=== PATIENT | male | born 1975 | race Caucasian/White ===

== ENCOUNTER 2020-05-08 12:08 | Inpatient (IN) | payer OTHER ==
--- NOTE | 2020-05-08 12:25 | BHS.RME ---
Substance Use & Tx History - Substance Use History Heroin Substance amount: 1 bag Frequency of use: Daily Substance route: Inhalation (ex: sniffing or snorting) Date of Last Use: 05/07/20 (started age 37) Xanax Substance amount: 2 mg 5 tabs Frequency of use: Daily Substance route: Oral Date of Last Use: 05/07/20 (started age 42) Nicotine Substance amount: 1 pack Frequency of use: Daily Substance route: Smoking Date of Last Use: 05/08/20 (started age 14) Physical/Psych/Mental Status - Behavior General Behavior: Increased activity (restlessness, agitation) Eye Contact: Normal - Cooperativeness Cooperativeness: Cooperative - Thinking Thought Processes: Tight, Logical, Goal Directed - Physical Health Problems Is patient presently having any pain?: No Does patient presently have any injuries (include location): No Does patient currently have a fever: No Is patient : No CIWA Nausea/Vomitin-Mild Nausea/No Vomiting Muscle Tremors: 4-Moderate,w/Arms Extend Anxiety: 4-Mod. Anxious/Guarded Agitation: 3 Paroxysmal Sweats: 3 Orientation: 0-Oriented Tacttile Disturbances: 0-None Auditory Disturbances: 0-None Visual Disturbances: 0-None Headache: 0-None Present (may be mitigated due to the ongoing sedative use.) CIWA-Ar Total Score: 15
--- NOTE | 2020-05-08 13:55 | HP ---
CIWA Score Nausea/Vomitin-Mild Nausea/No Vomiting Muscle Tremors: 4-Moderate,w/Arms Extend Anxiety: 4-Mod. Anxious/Guarded Agitation: 3 Paroxysmal Sweats: 3 Orientation: 0-Oriented Tacttile Disturbances: 0-None Auditory Disturbances: 0-None Visual Disturbances: 0-None Headache: 0-None Present (may be mitigated due to the ongoing sedative use.) CIWA-Ar Total Score: 15 - Admission Criteria OASAS Guidelines: Admission for Medically Managed Detox: Requires at least one of the followin. CIWA greater than 12 2. Seizures within the past 24 hours 3. Delirium tremens within the past 24 hours 4. Hallucinations within the past 24 hours 5. Acute intervention needed for co occurring medical disorder 6. Acute intervention needed for co occurring psychiatric disorder 7. Severe withdrawal that cannot be handled at a lower level of care (continued vomiting, continued diarrhea, abnormal vital signs) requiring intravenous medication and/or fluids 8. Admitting History and Physical - Admission Chief Complaint: Mr. Mccrary is a 44 yo gentleman who presents to [facility] requesting detox from heroin and benzodiazepine use. History of Present Illness: Mr. Mccrary is a 44 yo gentleman who presents to [facility] requesting detox from heroin and benzodiazepine use. He went to rehab in July after using 2 bundles of heroin. He is now on m ethadone 120 mg. PMH: obesity PSH: none Psych: anxiety, depression on meds, insomnia SoC: lives iwth parents Legal:none Substance Use History Heroin Substance amount: 1 bag Frequency of use: Daily Substance route: Inhalation (ex: sniffing or snorting) Date of Last Use: 05/07/20 (started age 37) NO OD or Narcan available Xanax Substance amount: 2 mg 5 tabs Frequency of use: Daily Substance route: Oral Date of Last Use: 05/07/20 (started age 42) He has never tried stopping benzos, if he stops he gets tremulous Nicotine Substance amount: 1 pack Frequency of use: Daily Substance route: Smoking Date of Last Use: 05/08/20 (started age 14) History Source: Patient Limitations to Obtaining History: No Limitations Admission ROS BHS - HPI Exam Limitations: No Limitations - Ebola screening Have you traveled outside of the country in the last 21 days: No Have you been sick,other than usual withdrawal symptoms: No Do you have a fever: No - Review of Systems Constitutional: Changes in sleep (trouble falling and staying asleep, has had meds) EENT: reports: Blurred Vision (glasses used for distance, has them with him) Respiratory: reports: No Symptoms reported Cardiac: reports: No Symptoms Reported GI: reports: Constipated, Nausea : reports: No Symptoms Reported Musculoskeletal: reports: No Symptoms Reported Integumentary: reports: Other (scratched mosquito bites on both anterior legs, fell when he jumped over a fence today: scraped elbows and knees while working with his dad) Neuro: reports: No Symptoms reported Endocrine: reports: No Symptoms Reported Hematology: reports: No Symptoms Reported Psychiatric: reports: Anxious Patient History - Smoking Cessation Smoking history: Current every day smoker Have you smoked in the past 12 months: Yes Aproximately how many cigarettes per day: 20 Hx Chewing Tobacco Use: No Initiated information on smoking cessation: Yes 'Breaking Loose' booklet given: 05/08/20 Admission Physical Exam S - Physical General Appearance: Yes: No Apparent Distress, Nourished, Anxious HEENTM: Yes: EOMI, Hearing grossly Normal, Normocephalic, Normal Voice Respiratory: Yes: Lungs Clear, No Respiratory Distress, No Accessory Muscle Use Neck: Yes: Within Normal Limits, Supple Breast: Yes: Breast Exam Deferred Cardiology: Yes: Regular Rhythm, Regular Rate Abdominal: Yes: Normal Bowel Sounds, Non Tender, Soft, Protuberent Genitourinary: Yes: Other (deferred) Back: Yes: Normal Inspection Musculoskeletal: Yes: Gait Steady Extremities: Yes: Normal Inspection, Non-Tender Neurological: Yes: Alert, Normal Response Integumentary: Yes: Other (scratch over left anterior leg ~3" with scab, scratch left knee and right elbow with small band aids covering, small amount of blood on band aids.) - Diagnostic (1) Moderate opioid dependence on maintenance therapy Current Visit: Yes Status: Acute Comment: 1. verify methadone, pt states last dose yesterday, will wait for verification prior to entering order (2) Sedative/hypnotic withdrawal without complication Current Visit: Yes Status: Acute Comment: 1. CIWA 15 2. will start pt on Valium protocol for detox 3. strongly recommend pt go to rehab post detox (3) Nicotine dependence Current Visit: Yes Status: Acute Qualifiers: Nicotine product type: cigarettes Substance use status: uncomplicated Qualified Code(s): F17.210 - Nicotine dependence, cigarettes, uncomplicated (4) Anxiety Current Visit: Yes Status: Acute Comment: 1. psychiatry consultation, medication management (5) Insomnia Current Visit: Yes Status: Acute Comment: 1. will start melatonin 2. pt states he has meds with him for sleep, will check prior to renewal Cleared for Admission S - Detox or Rehab [facility] Level of Care: Medically Managed Detox Regimen/Protocol: Valium Breathalyzer - Breathalyzer Breathalyzer: 0 Urine Drug Screen - Test Device Lot number: [id number] Expiration date: 11/29/21 - Control Is test valid?: Yes - Results Urine drug screen results: FEN-Fentanyl, MOP-Opiates, MTD-Methadone, BZO- Benzodiazepines Inpatient Rehab Admission - Rehab Decision to Admit Inpatient rehab admission?: No
[2020-05-08] MEDS ORDERED: ACETAMINOPHEN 325 MG TABLET (FP) PO PRN ×2 (14:09)
[2020-05-08] MEDS ORDERED: MAG HYDROX/AL HYDROX/SIMETH 30 ML UNIT-DOSE CUP PO PRN (14:09)
[2020-05-08] MEDS ORDERED: MAGNESIUM CITRATE 300 ML BOTTLE PO PRN (14:09)
[2020-05-08] MEDS ORDERED: BISMUTH SUBSALICYLATE 524 MG/30 ML UD PO PRN (14:09)
[2020-05-08] MEDS ORDERED: ONDANSETRON *ODT* 4 MG TABLET SL PRN (14:09)
[2020-05-08] MEDS ORDERED: NICOTINE POLACRILEX 2 MG GUM BUC PRN (14:09)
[2020-05-08] MEDS ORDERED: MAGNESIUM HYDROX 2400MG/30ML ORAL SUSPENSION 30 ML CUP PO PRN (14:09)
[2020-05-08] MEDS ORDERED: METHOCARBAMOL 500 MG TABLET PO PRN (14:09)
[2020-05-08] MEDS ORDERED: MENTHOL/PHENOL 1 EACH UD MM PRN (14:09)
[2020-05-08] MEDS ORDERED: IBUPROFEN 400 MG TABLET (FP) PO PRN (14:09)
[2020-05-08 14:53] VITALS: BMI 33.8
[2020-05-08] MEDS ORDERED: METHADONE HCL 10 MG TABLET (FOR DETOX USE ONLY) PO ONE (15:28)
[2020-05-08 17:20] LABS: HEMATOCRIT 43.5 % (35.4-49); HEMOGLOBIN 14.4 GM/dL (11.7-16.9); MCH 28.9 pg (25.7-33.7); MCHC 33.1 g/dl (32.0-35.9); MEAN CELL VOLUME 87.2 fl (80-96); MEAN PLT VOLUME 9.1 fl (7.5-11.1); PLATELET COUNT 147 K/MM3 (134-434); RBC 4.99 M/mm3 (4.00-5.60); RDW 14.6 % (11.9-15.9); WHITE BLOOD COUNT 7.9 K/mm3 (4.0-10.0)
[2020-05-08 17:22] LABS: ALBUMIN 3.8 g/dl (3.4-5.0); BILIRUBIN,TOTAL 0.7 mg/dL (0.2-1); BLOOD UREA NITROGEN 10.7 mg/dL (7-18); CALCIUM 8.6 mg/dL (8.5-10.1); POTASSIUM 3.8 mmol/L (3.5-5.1); TOT PROT 7.5 g/dl (6.4-8.2)
[2020-05-08] MEDS: NICOTINE 21 MG/24 HOURS TOPICAL PATCH TD SCH (18:40)
[2020-05-08] MEDS: diazePAM 5 MG TABLET PO SCH ×2 (18:42→22:43)
[2020-05-08] MEDS: hydrOXYzine PAMOATE 25 MG CAPSULE (FP) PO SCH ×2 (18:43→22:43)
[2020-05-08] MEDS: MELATONIN 5 MG TABLETS PO SCH (22:43)
[2020-05-08] MEDS: THIAMINE HCL 100 MG TABLET (FP) PO SCH (22:43)
[2020-05-09] MEDS: diazePAM 5 MG TABLET PO SCH ×4 (05:48→22:13)
[2020-05-09] MEDS: hydrOXYzine PAMOATE 25 MG CAPSULE (FP) PO SCH ×5 (05:48→22:13)
--- NOTE | 2020-05-09 09:03 | EKG ---
Test Reason : Blood Pressure : / mmHG Vent. Rate : 086 BPM Atrial Rate : 086 BPM P-R Int : 122 ms QRS Dur : 084 ms QT Int : 378 ms P-R-T Axes : 068 056 068 degrees QTc Int : 452 ms NORMAL SINUS RHYTHM WITH SINUS ARRHYTHMIA NORMAL ECG NO PREVIOUS ECGS AVAILABLE Confirmed by MD RAUL, GADIEL ([id number]) on 05/09/2020 9:02:50 AM Referred By: Confirmed By:GADIEL CARTER MD
--- NOTE | 2020-05-09 09:31 | PN ---
S CIWA - CIWA Score Nausea/Vomitin-No Nausea/No Vomiting Muscle Tremors: 3 Anxiety: 3 Agitation: 1-Slight > Activity Paroxysmal Sweats: No Perspiration Orientation: 0-Oriented Tacttile Disturbances: 0-None Auditory Disturbances: 0-None Visual Disturbances: 2-Mild Sensitivity Headache: 2-Mild CIWA-Ar Total Score: 11 S Progress Note (SOAP) Subjective: 44 years old male was admitted on 05/08/20 for benzo withdrawal sx management treating with valium detox regiment mr post is in the methadone program takes 80mg po methadone daily last dose on 05/08/20 been verified Objective: 05/09/20 09:34 Vital Signs - 24 hr 05/08/20 05/08/20 05/08/20 14:43 14:45 15:44 Temperature 97.2 F L 97.1 F L Pulse Rate 107 H 89 Respiratory 20 18 Rate Blood Pressure 147/99 119/87 O2 Sat by Pulse 97 95 Oximetry (%) 05/08/20 05/08/20 05/09/20 16:48 21:03 06:31 Temperature 97.5 F L 97.3 F L 97.9 F Pulse Rate 98 H 90 75 Respiratory 18 18 18 Rate Blood Pressure 129/86 131/87 127/86 O2 Sat by Pulse 95 95 97 Oximetry (%) 05/09/20 08:48 Temperature 97.1 F L Pulse Rate 81 Respiratory 20 Rate Blood Pressure 120/85 O2 Sat by Pulse Oximetry (%) Laboratory Tests 05/08/20 05/08/20 05/08/20 14:15 14:15 14:15 WBC 7.9 RBC 4.99 Hgb 14.4 Hct 43.5 MCV 87.2 MCH 28.9 MCHC 33.1 RDW 14.6 Plt Count 147 MPV 9.1 Sodium 142 Potassium 3.8 Chloride 103 Carbon Dioxide 34 H Anion Gap 5 L BUN 10.7 Creatinine 1.0 Est GFR (CKD-EPI)AfAm 104.88 Est GFR (CKD-EPI)NonAf 90.49 Random Glucose 123 H Calcium 8.6 Total Bilirubin 0.7 AST 18 ALT 20 Alkaline Phosphatase 71 Total Protein 7.5 Albumin 3.8 Syphilis Serology Non-reactive HIV Ag/Ab Combo Qual 05/08/20 14:15 WBC RBC Hgb Hct MCV MCH MCHC RDW Plt Count MPV Sodium Potassium Chloride Carbon Dioxide Anion Gap BUN Creatinine Est GFR (CKD-EPI)AfAm Est GFR (CKD-EPI)NonAf Random Glucose Calcium Total Bilirubin AST ALT Alkaline Phosphatase Total Protein Albumin Syphilis Serology HIV Ag/Ab Combo Qual Negative 05/09/20 09:38 covid pending mr post is alert oriented x 3 ambulating with steady gaits from bed to bathroom speech clearly coherently vital signs stable ate breakfast in room no trouble chewing food nor swallowing food tolerating food well Assessment: 05/09/20 09:40 benzo withdrawal Plan: valium regiment methadone 80mg po daily begin 05/10/20
[2020-05-09] MEDS ORDERED: METHADONE HCL 10 MG TABLET PO ONE (09:36)
[2020-05-09] MEDS ORDERED: METHADONE HCL 40 MG DISPERSABLE TABLET PO ONE (10:00)
[2020-05-09] MEDS: PRENATAL VITAMINS W/ FOLIC ACID TABLET (FP) PO SCH (10:58)
[2020-05-09] MEDS: NICOTINE 21 MG/24 HOURS TOPICAL PATCH TD SCH (10:59)
--- NOTE | 2020-05-09 12:32 | CONSULT ---
[facility] Psychiatric Consult - Data Date of interview: 05/09/20 Admission source: [facility] Identifying data: Second visit to [facility] and first admission to the detoxification program at [address] [place] [address] for this 44 y/o male self-referred for treatment. JUSTINE issues : benzodiazepine (xanax), opioid, nicotine. 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 Substance Abuse History: Discussed with the patient. JUSTINE profile as follows : Heroin. Substance amount: 1 bag. Frequency of use: Daily. Substance route: Inhalation (ex: sniffing or snorting). Date of Last Use: 05/07/20 (started age 37). NO OD or Narcan available. Xanax. Substance amount: 2 mg 5 tabs. Frequency of use: Daily. Substance route: Oral. Date of Last Use: 05/07/20 (started age 42). He has never tried stopping benzos, if he stops he gets tremulous. Nicotine. Substance amount: 1 pack. Frequency of use: Daily. Substance route: Smoking. Date of Last Use: 05/08/20 (started age 14). History Source: Patient. Limitations to Obtaining History: No Limitations. First-time detoxification. Patient has also reported use of cocaine and sporadic exposure to cannabis. Medical History: Medical profile is remarkable for obesity. Patient endorses good general health. Psychiatric History: Patient denies history of psychiatric hospitalizations. He reports current psychiatric OPD treatment at a [facility] clinic in the [place] (started three months ago). Mr Hermann bhagat indicates that he is prescribed " a medication for anxiety " but he does not recall the name of the drug. Patient denies history of suicide attempts. He is currently on methadone maintenance (120 mg/day). Physical/Sexual Abuse/Trauma History: Patient denies history of abuse. Additional Comment: Urine drug screen results: FEN-Fentanyl, MOP-Opiates, MTD- Methadone, BZO-Benzodiazepines. Noted. Mental Status Exam - Mental Status Exam Alert and Oriented to: Time, Place, Person Cognitive Function: Good Patient Appearance: Well Groomed Mood: Hopeful Affect: Appropriate, Normal Range Patient Behavior: Fatigued, Appropriate, Cooperative (friendly) Speech Pattern: Clear, Appropriate Voice Loudness: Normal Thought Process: Intact, Goal Oriented Thought Disorder: Not Present Hallucinations: Denies Suicidal Ideation: Denies Homicidal Ideation: Denies Insight/Judgement: Fair Sleep: Well Appetite: Good Gait/Station: Normal Psychiatric Findings - Problem List (Hermann 1, 2,3) (1) Sedative/hypnotic withdrawal without complication Current Visit: Yes Status: Acute Comment: 1. CIWA 15 2. will start pt on Valium protocol for detox 3. strongly recommend pt go to rehab post detox (2) Opioid dependence on agonist therapy Current Visit: Yes Status: Chronic (3) Benzodiazepine dependence Current Visit: Yes Status: Chronic (4) Substance induced mood disorder Current Visit: Yes Status: Chronic (5) Insomnia Current Visit: Yes Status: Chronic Comment: 1. will start melatonin 2. pt states he has meds with him for sleep, will check prior to renewal - Initial Treatment Plan Initial Treatment Plan: Psychoeducation. Sleep hygiene. Detoxification in progress. Weaving Teacher called [id number] for verification of medications at [phone] (not informative : call switched to mailbox). Support. Observation.
[2020-05-09] MEDS: diazePAM 5 MG TABLET PO PRN (14:20)
[2020-05-09] MEDS: THIAMINE HCL 100 MG TABLET (FP) PO SCH (22:13)
[2020-05-09] MEDS: MELATONIN 5 MG TABLETS PO SCH (22:13)
[2020-05-10] MEDS: METHADONE HCL 40 MG DISPERSABLE TABLET PO SCH (06:30)
[2020-05-10] MEDS: hydrOXYzine PAMOATE 25 MG CAPSULE (FP) PO SCH ×5 (06:30→22:04)
[2020-05-10] MEDS: diazePAM 5 MG TABLET PO SCH ×3 (06:30→22:04)
[2020-05-10] MEDS: PRENATAL VITAMINS W/ FOLIC ACID TABLET (FP) PO SCH (09:49)
[2020-05-10] MEDS: diazePAM 5 MG TABLET PO PRN (09:49)
[2020-05-10] MEDS: NICOTINE 21 MG/24 HOURS TOPICAL PATCH TD SCH (09:49)
--- NOTE | 2020-05-10 11:56 | PN ---
S CIWA - CIWA Score Nausea/Vomitin-Mild Nausea/No Vomiting Muscle Tremors: 2 Anxiety: 2 Agitation: 2 Paroxysmal Sweats: No Perspiration Orientation: 0-Oriented Tacttile Disturbances: 0-None Auditory Disturbances: 0-None Visual Disturbances: 0-None Headache: 1-Very Mild CIWA-Ar Total Score: 8 BHS Progress Note (SOAP) Subjective: alert,irritable,anxious,interrupted sleep,aching pain,nausea Objective: 05/10/20 16:18 Vital Signs Temperature 97.2 F L 05/10/20 12:42 Pulse Rate 84 05/10/20 12:42 Respiratory Rate 18 05/10/20 12:42 Blood Pressure 118/80 05/10/20 12:42 O2 Sat by Pulse Oximetry (%) 95 05/10/20 12:42 Assessment: 05/10/20 16:19 withdrawal symptom Plan: continue detox valium regimen,methadone maintenance 80 mgs/day methadone regimen
[2020-05-10] MEDS: MELATONIN 5 MG TABLETS PO SCH (22:05)
[2020-05-10] MEDS: THIAMINE HCL 100 MG TABLET (FP) PO SCH (22:05)
[2020-05-11] MEDS: METHADONE HCL 40 MG DISPERSABLE TABLET PO SCH (06:12)
[2020-05-11] MEDS: diazePAM 5 MG TABLET PO SCH ×2 (06:13→17:42)
[2020-05-11] MEDS: hydrOXYzine PAMOATE 25 MG CAPSULE (FP) PO SCH ×5 (06:13→22:04)
--- NOTE | 2020-05-11 09:41 | PN ---
S CIWA - CIWA Score Nausea/Vomitin-No Nausea/No Vomiting Muscle Tremors: None Anxiety: 1-Mildly Anxious Agitation: 0-Normal Activity Paroxysmal Sweats: No Perspiration Orientation: 2-Disoriented Date<2 days Tacttile Disturbances: 0-None Auditory Disturbances: 0-None Visual Disturbances: 0-None Headache: 0-None Present CIWA-Ar Total Score: 3 BHS Progress Note (SOAP) Subjective: Pt with mild anxiety, thinks today is the Objective: 05/11/20 10:03 PE Gnl: WDWN, up out of bed MS: nl mentation Motor: moves limbs well Coord: nl Gait: steady Laboratory Tests 05/08/20 05/08/20 05/08/20 14:15 14:15 14:15 WBC 7.9 RBC 4.99 Hgb 14.4 Hct 43.5 MCV 87.2 MCH 28.9 MCHC 33.1 RDW 14.6 Plt Count 147 MPV 9.1 Sodium 142 Potassium 3.8 Chloride 103 Carbon Dioxide 34 H Anion Gap 5 L BUN 10.7 Creatinine 1.0 Est GFR (CKD-EPI)AfAm 104.88 Est GFR (CKD-EPI)NonAf 90.49 Random Glucose 123 H Calcium 8.6 Total Bilirubin 0.7 AST 18 ALT 20 Alkaline Phosphatase 71 Total Protein 7.5 Albumin 3.8 Syphilis Serology Non-reactive COVID-19 (RODERICK) HIV Ag/Ab Combo Qual 05/08/20 05/08/20 14:15 14:15 WBC RBC Hgb Hct MCV MCH MCHC RDW Plt Count MPV Sodium Potassium Chloride Carbon Dioxide Anion Gap BUN Creatinine Est GFR (CKD-EPI)AfAm Est GFR (CKD-EPI)NonAf Random Glucose Calcium Total Bilirubin AST ALT Alkaline Phosphatase Total Protein Albumin Syphilis Serology COVID-19 (RODERICK) Not detected HIV Ag/Ab Combo Qual Negative Home Medication List Medication Instructions Recorded Confirmed Type Clonidine HCl [Catapres] 0.2 mg PO HS 05/08/20 05/08/20 History Fluvoxamine Maleate 100 mg PO HS 05/08/20 05/08/20 History cloNIDine HCL [Catapres -] 0.1 mg PO DAILY 05/08/20 05/08/20 History levETIRAcetam [Keppra -] 1,000 mg PO BID 05/08/20 05/08/20 History Active Medications Generic Name Dose Route Start Last Admin Trade Name Freq PRN Reason Stop Dose Admin Acetaminophen 650 mg 05/08/20 14:09 Tylenol - PO Q6H PRN PAIN LEVEL 4 - 6 Acetaminophen 650 mg 05/08/20 14:09 Tylenol - PO Q6H PRN FEVER Al Hydroxide/Mg Hydroxide 30 ml 05/08/20 14:09 Mylanta Oral Suspension - PO Q6H PRN DYSPEPSIA Bismuth Subsalicylate 524 mg 05/08/20 14:09 Pepto-Bismol - PO Q1H PRN DIARRHEA Diazepam 5 mg 05/11/20 06:00 05/11/20 06:13 Valium - PO 05/11/20 18:01 5 mg Q12H EMMIE Administration Diazepam 10 mg 05/08/20 14:09 05/10/20 09:49 Valium - PO 05/11/20 14:08 10 mg Q4H PRN Administration WITHDRAWAL(CONT SUBST) Diazepam 5 mg 05/12/20 06:00 Valium - PO 05/12/20 06:01 ONCE ONE Eucalyptus/Menthol/Phenol/Sorbitol 1 each 05/08/20 14:09 Cepastat Lozenge - MM 05/14/20 14:10 Q4H PRN SORE THROAT Hydroxyzine Pamoate 25 mg 05/08/20 18:00 05/11/20 06:13 Vistaril - PO 05/14/20 14:10 25 mg Q4HWA EMMIE Administration Ibuprofen 400 mg 05/08/20 14:09 Motrin - PO Q6H PRN PAIN LEVEL 1 - 3 Magnesium Citrate 300 ml 05/08/20 14:09 Citroma - PO Q48H PRN CONSTIPATION Magnesium Hydroxide 30 ml 05/08/20 14:09 05/10/20 22:05 Milk Of Magnesia - PO 30 ml PRN PRN Administration CONSTIPATION Melatonin 5 mg 05/08/20 22:00 05/10/20 22:05 Melatonin PO 5 mg HS EMMIE Administration Methadone HCl 80 mg 05/10/20 06:00 05/11/20 06:12 Dolophine - PO 05/16/20 05:59 80 mg DAILY@0600 EMMIE Administration Methocarbamol 500 mg 05/08/20 14:09 05/09/20 10:58 Robaxin - PO 05/14/20 14:10 500 mg Q6H PRN Administration MUSCLE SPASMS Nicotine 21 mg 05/08/20 14:15 05/10/20 09:49 Nicoderm Patch - TD 21 mg DAILY EMMIE Administration Nicotine Polacrilex 2 mg 05/08/20 14:09 Nicorette Gum - BUC Q2H PRN NICOTINE REPLACEMENT RX Ondansetron HCl 4 mg 05/08/20 14:09 Zofran Odt - SL Q8H PRN Nausea/Vomiting Multivit/Folic Acid/Iron 1 tab 05/09/20 10:00 05/10/20 09:49 Vitamins (Sjr) - PO 1 tab DAILY EMMIE Administration Thiamine HCl 100 mg 05/08/20 22:00 05/10/20 22:05 Vitamin B1 - PO 100 mg HS EMMIE Administration Vital Signs Temperature 97.7 F 05/11/20 08:44 Pulse Rate 108 H 05/11/20 08:44 Respiratory Rate 18 05/11/20 08:44 Blood Pressure 148/92 05/11/20 08:44 O2 Sat by Pulse Oximetry (%) 98 05/11/20 07:56 Assessment: 05/11/20 09:40 Mr. Mccrary is a 44 yo gentleman who presents to [facility] requesting detox from heroin and benzodiazepine use. He went to rehab in July after using 2 bundles of heroin. He is now on methadone 120 mg. PMH: obesity PSH: none Psych: anxiety, depression on meds, insomnia SoC: lives iwth parents Legal:none Imp 1. Methadone maintenence: 80 mg daily 2. Sedative use disorder 3. Nicotine dependence Plan: 1. continue Methadone 80 mg dialy 2. Valium protocol, projected completion tomorrow, plans outpatient program: [facility]
[2020-05-11] MEDS: NICOTINE 21 MG/24 HOURS TOPICAL PATCH TD SCH (10:10)
[2020-05-11] MEDS: PRENATAL VITAMINS W/ FOLIC ACID TABLET (FP) PO SCH (10:10)
[2020-05-11] MEDS: diazePAM 5 MG TABLET PO PRN (10:11)
[2020-05-11] MEDS: MELATONIN 5 MG TABLETS PO SCH (22:04)
[2020-05-11] MEDS: THIAMINE HCL 100 MG TABLET (FP) PO SCH (22:04)
[2020-05-12] MEDS: METHADONE HCL 40 MG DISPERSABLE TABLET PO SCH (05:28)
[2020-05-12] MEDS: hydrOXYzine PAMOATE 25 MG CAPSULE (FP) PO SCH (05:28)
[2020-05-12] MEDS ORDERED: diazePAM 5 MG TABLET PO ONE (06:00)
[2020-05-12 06:30] VITALS: BP 123/76; PULSE 78; TEMP 97.7
--- NOTE | 2020-05-12 10:38 | DS ---
[facility] Detox Discharge Summary Admission Date: 05/08/20 Discharge Date: 05/12/20 - History Present History: Opioid Dependence, Sedative Dependence Additional Comments: Pt is medically cleared and discharged today. Pt completed the detox protocol. Pt is instructed to follow-up with an outpatient CD program and also to follow- up with his pmd which he verbalized understanding. Pt is AOX3, in no acute respiratory distress, Full ROM, and ambulatory. Pertinent Past History: h/o heroin and benzo use disorder. - Physical Exam Results Vital Signs: Vital Signs Temperature 97.7 F 05/12/20 06:30 Pulse Rate 78 05/12/20 06:30 Respiratory Rate 18 05/12/20 06:30 Blood Pressure 123/76 05/12/20 06:30 O2 Sat by Pulse Oximetry (%) 96 05/12/20 06:30 Vital Signs 05/12/20 06:30 Temperature 97.7 F Pulse Rate 78 Respiratory 18 Rate Blood Pressure 123/76 O2 Sat by Pulse 96 Oximetry (%) Laboratory Last Values WBC 7.9 K/mm3 (4.0-10.0) 05/08/20 14:15 RBC 4.99 M/mm3 (4.00-5.60) 05/08/20 14:15 Hgb 14.4 GM/dL (11.7-16.9) 05/08/20 14:15 Hct 43.5 % (35.4-49) 05/08/20 14:15 MCV 87.2 fl (80-96) 05/08/20 14:15 MCH 28.9 pg (25.7-33.7) 05/08/20 14:15 MCHC 33.1 g/dl (32.0-35.9) 05/08/20 14:15 RDW 14.6 % (11.9-15.9) 05/08/20 14:15 Plt Count 147 K/MM3 (134-434) 05/08/20 14:15 MPV 9.1 fl (7.5-11.1) 05/08/20 14:15 Sodium 142 mmol/L (136-145) 05/08/20 14:15 Potassium 3.8 mmol/L (3.5-5.1) 05/08/20 14:15 Chloride 103 mmol/L (98-107) 05/08/20 14:15 Carbon Dioxide 34 mmol/L (21-32) H 05/08/20 14:15 Anion Gap 5 MMOL/L (8-16) L 05/08/20 14:15 BUN 10.7 mg/dL (7-18) 05/08/20 14:15 Creatinine 1.0 mg/dL (0.55-1.3) 05/08/20 14:15 Est GFR (CKD-EPI)AfAm 104.88 05/08/20 14:15 Est GFR (CKD-EPI)NonAf 90.49 05/08/20 14:15 Random Glucose 123 mg/dL (74-106) H 05/08/20 14:15 Calcium 8.6 mg/dL (8.5-10.1) 05/08/20 14:15 Total Bilirubin 0.7 mg/dL (0.2-1) 05/08/20 14:15 AST 18 U/L (15-37) 05/08/20 14:15 ALT 20 U/L (13-61) 05/08/20 14:15 Alkaline Phosphatase 71 U/L (45-117) 05/08/20 14:15 Total Protein 7.5 g/dl (6.4-8.2) 05/08/20 14:15 Albumin 3.8 g/dl (3.4-5.0) 05/08/20 14:15 Syphilis Serology Non-reactive (NONREACTIVE) 05/08/20 14:15 COVID-19 (RODERICK) Not detected (Not Detected) 05/08/20 14:15 HIV Ag/Ab Combo Qual Negative (NEGATIVE) 05/08/20 14:15 Labs noted. Pertinent Admission Physical Exam Findings: withdrawal symptoms. - Treatment Hospital Course: Detox Protocol Followed, Detoxed Safely, Responded well, Discharged Condition Good - Medication Discharge Medications: Ambulatory Orders Clonidine HCl [Catapres] 0.2 mg PO HS 05/08/20 Fluvoxamine Maleate 100 mg PO HS 05/08/20 cloNIDine HCL [Catapres -] 0.1 mg PO DAILY 05/08/20 levETIRAcetam [Keppra -] 1,000 mg PO BID 05/08/20 - Diagnosis (1) Nicotine dependence Status: Chronic Qualifiers: Nicotine product type: cigarettes Substance use status: uncomplicated Qualified Code(s): F17.210 - Nicotine dependence, cigarettes, uncomplicated (2) Benzodiazepine dependence Status: Chronic (3) Opioid dependence on agonist therapy Status: Chronic (4) Sedative/hypnotic withdrawal without complication Status: Acute - AMA Did Patient Leave Against Medical Advice: No
== END 2020-05-12 08:33 | disposition home or self-care (01) | DRG 773 ==
LOC: YASAS 12:08 → Y3N 14:46
PROVIDERS: ADMIT Allergy & Immunology; ATTEND Allergy & Immunology
PROC: HZ2ZZZZ Detoxification Services for Substance Abuse Treatment (ICD-10-PCS; principal; 2020-05-08)
DX: F13.230 Sedative, hypnotic or anxiolytic dependence with withdrawal, uncomplicated (principal); F11.20 Opioid dependence, uncomplicated; F14.10 Cocaine abuse, uncomplicated; F17.210 Nicotine dependence, cigarettes, uncomplicated; F19.24 Other psychoactive substance dependence with psychoactive substance-induced mood disorder; F41.9 Anxiety disorder, unspecified; F32.9 Major depressive disorder, single episode, unspecified; G47.00 Insomnia, unspecified; E66.09 Other obesity due to excess calories; Z68.33 Body mass index [BMI] 33.0-33.9, adult
CPT/HCPCS: 36415; 80053; 85027; 86780; 87389; 93005; 93010; U0003

== ENCOUNTER 2021-12-11 11:05 | Inpatient (IN) | payer OTHER ==
[2021-12-11] MEDS ORDERED: BENZOCAINE/MENTHOL (CHLORASEPTIC ) LOZENGE MM PRN (12:45)
[2021-12-11] MEDS ORDERED: BISMUTH SUBSALICYLATE 524 MG/30 ML PO PRN (12:45)
[2021-12-11] MEDS ORDERED: LOPERAMIDE HCL 2 MG CAPSULE PO PRN (12:45)
[2021-12-11] MEDS ORDERED: DICYCLOMINE HCL 10 MG CAPSULE PO PRN (12:45)
[2021-12-11] MEDS ORDERED: ACETAMINOPHEN 325 MG TABLET (FP) PO PRN ×2 (12:45)
[2021-12-11] MEDS ORDERED: IBUPROFEN 400 MG TABLET (FP) PO PRN (12:45)
[2021-12-11] MEDS ORDERED: diazePAM 5 MG TABLET PO PRN (12:45)
[2021-12-11] MEDS ORDERED: MAGNESIUM CITRATE 300 ML BOTTLE PO PRN (12:45)
[2021-12-11] MEDS ORDERED: ONDANSETRON *ODT* 4 MG TABLET SL PRN (12:45)
[2021-12-11] MEDS ORDERED: MAG HYDROX/AL HYDROX/SIMETH 30 ML UNIT-DOSE CUP PO PRN (12:45)
[2021-12-11] MEDS ORDERED: MAGNESIUM HYDROX 2400MG/30ML ORAL SUSPENSION 30 ML CUP PO PRN (12:45)
[2021-12-11] MEDS ORDERED: METHOCARBAMOL 500 MG TABLET PO PRN (12:45)
[2021-12-11 13:14] VITALS: BMI 34.1
[2021-12-11 16:30] LABS: ALBUMIN 3.8 g/dl (3.4-5.0); BLOOD UREA NITROGEN 14.7 mg/dL (7-18); CALCIUM 9.1 mg/dL (8.5-10.1)
[2021-12-11 16:33] LABS: CREATININE 1.1 mg/dL (0.55-1.3)
[2021-12-11 16:35] LABS: BILIRUBIN,TOTAL 0.4 mg/dL (0.2-1); TOT PROT 6.8 g/dl (6.4-8.2)
[2021-12-11 16:48] LABS: HEMATOCRIT 41.5 % (35.4-49); HEMOGLOBIN 13.5 GM/dL (11.7-16.9); MCH 28.4 pg (25.7-33.7); MCHC 32.7 g/dl (32.0-35.9); MEAN CELL VOLUME 86.9 fl (80-96); MEAN PLT VOLUME 9.8 fl (7.5-11.1); PLATELET COUNT 212 10^3/uL (134-434); RBC 4.77 M/mm3 (4.00-5.60); RDW 14.2 % (11.9-15.9); WHITE BLOOD COUNT 8.8 K/mm3 (4.0-10.0)
[2021-12-11] MEDS: diazePAM 5 MG TABLET PO SCH ×2 (18:32→22:24)
[2021-12-11] MEDS: hydrOXYzine PAMOATE 25 MG CAPSULE (FP) PO SCH ×3 (18:32→22:23)
[2021-12-11] MEDS: PRENATAL VITAMINS W/ FOLIC ACID TABLET (FP) PO SCH (18:33)
[2021-12-11] MEDS: NICOTINE 14 MG/24 HOURS TOPICAL PATCH TD SCH (18:37)
[2021-12-11] MEDS: MELATONIN 5 MG TABLETS PO SCH (22:23)
[2021-12-11] MEDS: THIAMINE HCL 100 MG TABLET (FP) PO SCH (22:23)
[2021-12-12] MEDS: diazePAM 5 MG TABLET PO SCH ×4 (05:32→22:49)
[2021-12-12] MEDS: hydrOXYzine PAMOATE 25 MG CAPSULE (FP) PO SCH ×5 (05:32→22:51)
[2021-12-12] MEDS: NICOTINE 14 MG/24 HOURS TOPICAL PATCH TD SCH (10:13)
[2021-12-12] MEDS: PRENATAL VITAMINS W/ FOLIC ACID TABLET (FP) PO SCH (10:13)
[2021-12-12] MEDS ORDERED: ESCITALOPRAM OXALATE 20 MG TABLET PO ONE (11:20)
[2021-12-12] MEDS ORDERED: methaDONE HCL 10 MG TABLET PO ONE (11:56)
[2021-12-12] MEDS ORDERED: FLU VACC QS2021-22(6MOS UP)/PF 60 MCG/0.5 ML SYRINGE IM ONE (12:00)
[2021-12-12] MEDS ORDERED: methaDONE 80 MG, methaDONE 10 MG PO ONE (12:00)
[2021-12-12] MEDS ORDERED: PNEUMOC 13-VAL CONJ-DIP CRM/PF 0.5 ML DISP.SYRIN IM ONE (12:00)
[2021-12-12] MEDS ORDERED: PNEUMOCOCCAL 23 VACCINE 0.5 ML VIAL IM ONE (12:00)
[2021-12-12] MEDS ORDERED: methaDONE HCL 10 MG TABLET ONE (12:22)
[2021-12-12] MEDS ORDERED: methaDONE HCL 40 MG DISPERSABLE TABLET ONE (12:23)
[2021-12-12] MEDS: NICOTINE 10 MG CARTRIDGE (INHALER) IH PRN ×2 (16:43→22:50)
[2021-12-12] MEDS ORDERED: traZODone HCL 50 MG TABLET (FP) PO SCH (22:00)
[2021-12-12] MEDS: THIAMINE HCL 100 MG TABLET (FP) PO SCH (22:49)
[2021-12-12] MEDS: MELATONIN 5 MG TABLETS PO SCH (22:51)
[2021-12-13] MEDS ORDERED: methaDONE HCL 10 MG TABLET ONE (04:29)
[2021-12-13] MEDS ORDERED: methaDONE HCL 40 MG DISPERSABLE TABLET ONE (04:29)
[2021-12-13] MEDS ORDERED: methaDONE 80 MG, methaDONE 10 MG PO SCH (06:00)
[2021-12-13] MEDS ORDERED: methaDONE HCL 10 MG TABLET PO SCH (06:00)
[2021-12-13 06:06] LABS: SARS-CoV-2 NAA Not Detected (Not Detected)
[2021-12-13] MEDS: diazePAM 5 MG TABLET PO SCH ×2 (06:07→14:01)
[2021-12-13] MEDS: hydrOXYzine PAMOATE 25 MG CAPSULE (FP) PO SCH ×4 (06:07→19:40)
[2021-12-13] MEDS ORDERED: ESCITALOPRAM OXALATE 20 MG TABLET PO SCH (10:00)
[2021-12-13] MEDS: PRENATAL VITAMINS W/ FOLIC ACID TABLET (FP) PO SCH (10:31)
[2021-12-13] MEDS: NICOTINE 14 MG/24 HOURS TOPICAL PATCH TD SCH (10:31)
[2021-12-13 18:30] VITALS: BP 129/59; PULSE 66; TEMP 97.5
[2021-12-13 22:53] LABS: MAGNESIUM 2.1 mg/dL (1.8-2.4)
[2021-12-13 22:57] LABS: PHOSPHOROUS 4.3 mg/dL (2.5-4.9)
[2021-12-14] MEDS ORDERED: diazePAM 5 MG TABLET PO SCH (06:00)
[2021-12-15] MEDS ORDERED: diazePAM 5 MG TABLET PO ONE (06:00)
== END 2021-12-13 23:58 | disposition short-term general hospital (02) | DRG 773 ==
LOC: YASAS 11:05 → Y6N 16:13
PROVIDERS: ADMIT Allergy & Immunology; ATTEND Allergy & Immunology
PROC: HZ2ZZZZ Detoxification Services for Substance Abuse Treatment (ICD-10-PCS; principal; 2021-12-11)
DX: F10.230 Alcohol dependence with withdrawal, uncomplicated (principal); F13.230 Sedative, hypnotic or anxiolytic dependence with withdrawal, uncomplicated; F11.20 Opioid dependence, uncomplicated; F17.210 Nicotine dependence, cigarettes, uncomplicated; F41.9 Anxiety disorder, unspecified; F32.A Depression, unspecified; E78.5 Hyperlipidemia, unspecified; F19.280 Other psychoactive substance dependence with psychoactive substance-induced anxiety disorder; F19.282 Other psychoactive substance dependence with psychoactive substance-induced sleep disorder; I10 Essential (primary) hypertension; M54.16 Radiculopathy, lumbar region; E66.9 Obesity, unspecified; Z68.34 Body mass index [BMI] 34.0-34.9, adult; Z87.09 Personal history of other diseases of the respiratory system; Z87.19 Personal history of other diseases of the digestive system; Z56.0 Unemployment, unspecified
CPT/HCPCS: 36415; 80053; 80177; 82962; 83735; 84100; 85027; 86780; 90686; 90732; 93005; 93010; C9803-CS; G0008; G0009; U0003; U0005

== ENCOUNTER 2021-12-13 18:07 | Observation (INO) | payer OTHER ==
[2021-12-13] MEDS ORDERED: NALOXONE HCL 0.4 MG/ML VIAL ONE (18:36)
[2021-12-13] MEDS ORDERED: NALOXONE HCL 0.4 MG/ML VIAL IVPUSH ONE ×2 (18:40→19:26)
[2021-12-13] MEDS ORDERED: ALBUTEROL SO4 2.5/IPRATROPIUM 0.5 INH SOL 3 ML VIAL.NEB. NEB ONE ×2 (18:42→19:20)
[2021-12-13 19:59] LABS: BASO % 0.3 % (0-2.0); EOS % 0.2 % (0-4.5); HEMOGLOBIN 13.1 GM/dL (11.7-16.9); LYMPH % 7.8 % (8-40); MCH 28.4 pg (25.7-33.7); MCHC 32.8 g/dl (32.0-35.9); MEAN CELL VOLUME 86.7 fl (80-96); MEAN PLT VOLUME 7.7 fl (7.5-11.1); MONO % 5.8 % (3.8-10.2); NEUT % 85.9 % (42.8-82.8); PLATELET COUNT 176 10^3/uL (134-434); RBC 4.62 M/mm3 (4.00-5.60); RDW 13.9 % (11.9-15.9); WHITE BLOOD COUNT 9.5 K/mm3 (4.0-10.0)
[2021-12-13 20:05] LABS: INR 1.01 (0.83-1.09); PROTHROMBIN TIME (PATIENT) 11.6 SEC (9.7-13.0)
[2021-12-13 20:08] LABS: ACTIVATED PTT 29.1 SECONDS (25.2-36.5)
[2021-12-13 20:14] LABS: VENOUS BASE EXCESS 5.5 mmol/L (-2-2); VENOUS O2 SATURATION 98.5 % (70-80); VENOUS PH 7.297 (7.310-7.410)
[2021-12-13 20:17] LABS: VENOUS PCO2 72.3 mmHg (38-52)
[2021-12-13 20:22] LABS: ALBUMIN 3.8 g/dl (3.4-5.0); CALCIUM 8.6 mg/dL (8.5-10.1)
[2021-12-13 20:23] LABS: BLOOD UREA NITROGEN 10.5 mg/dL (7-18)
[2021-12-13 20:25] LABS: CREATININE 0.8 mg/dL (0.55-1.3)
[2021-12-13 20:27] LABS: TOT PROT 6.8 g/dl (6.4-8.2)
[2021-12-13 20:28] LABS: BILIRUBIN,TOTAL 0.3 mg/dL (0.2-1)
[2021-12-13] MEDS ORDERED: methylPREDNISolone NA SUCC 125 MG/2 ML VIAL IVPUSH ONE (20:29)
[2021-12-13] MEDS ORDERED: methylPREDNISolone NA SUCC 125 MG/2 ML VIAL ONE (20:31)
[2021-12-13] MEDS ORDERED: AZITHROMYCIN IVPB 500 MG in DEXTROSE 5%-WATER - 250 ML IVPB ONE (20:38)
[2021-12-13] MEDS ORDERED: CEFTRIAXONE 1,000 MG in DEXTROSE 5%-WATER - 50 ML IVPB ONE (20:41)
[2021-12-13] MEDS ORDERED: AMPICILLIN NA/SULBACTAM NA 1.5 GM in SODIUM CHLORIDE 100 ML IVPB ONE (20:45)
[2021-12-13] MEDS ORDERED: AZITHROMYCIN IVPB 500 MG/250 ML BAG IVPB ONE (20:50)
[2021-12-13 21:54] LABS: PHOSPHOROUS 2.6 mg/dL (2.5-4.9)
[2021-12-13] MEDS ORDERED: SENNOSIDES 8.6MG TABLET (FP) PO SCH (22:00)
[2021-12-13] MEDS ORDERED: diazePAM 5 MG TABLET PO SCH (23:00)
[2021-12-13] MEDS ORDERED: NICOTINE 10 MG CARTRIDGE (INHALER) IH PRN (23:31)
[2021-12-13] MEDS ORDERED: IBUPROFEN 400 MG TABLET (FP) PO PRN (23:31)
[2021-12-13] MEDS ORDERED: diazePAM 5 MG TABLET PO PRN (23:40)
[2021-12-13] MEDS ORDERED: SENNOSIDES 8.6MG TABLET (FP) PO ONE (23:56)
[2021-12-13] MEDS ORDERED: diazePAM 5 MG TABLET ONE (23:56)
[2021-12-14 05:35] VITALS: BMI 36.1
[2021-12-14] MEDS ORDERED: methaDONE HCL 10 MG TABLET (FOR DETOX USE ONLY) PO SCH (06:00)
[2021-12-14] MEDS: diazePAM 5 MG TABLET PO SCH ×2 (06:15→14:28)
[2021-12-14 07:44] LABS: BASO % 0.3 % (0-2.0); HEMATOCRIT 42.2 % (35.4-49); HEMOGLOBIN 13.7 GM/dL (11.7-16.9); LYMPH % 9.9 % (8-40); MCH 28.2 pg (25.7-33.7); MCHC 32.4 g/dl (32.0-35.9); MEAN CELL VOLUME 86.9 fl (80-96); MEAN PLT VOLUME 8.7 fl (7.5-11.1); MONO % 1.4 % (3.8-10.2); NEUT % 88.4 % (42.8-82.8); PLATELET COUNT 190 10^3/uL (134-434); RBC 4.85 M/mm3 (4.00-5.60); RDW 13.7 % (11.9-15.9)
[2021-12-14 07:54] LABS: BLOOD UREA NITROGEN 10.8 mg/dL (7-18); CALCIUM 9.2 mg/dL (8.5-10.1)
[2021-12-14 07:57] LABS: CREATININE 0.8 mg/dL (0.55-1.3); PHOSPHOROUS 1.9 mg/dL (2.5-4.9)
[2021-12-14] MEDS ORDERED: THIAMINE HCL 100 MG TABLET (FP) PO SCH (10:00)
[2021-12-14] MEDS ORDERED: NICOTINE 14 MG/24 HOURS TOPICAL PATCH TD SCH (10:00)
[2021-12-14] MEDS ORDERED: ESCITALOPRAM OXALATE 20 MG TABLET PO SCH (10:00)
[2021-12-14] MEDS ORDERED: PRENATAL VITAMINS W/ FOLIC ACID TABLET (FP) PO SCH (10:00)
[2021-12-14] MEDS ORDERED: DOCUSATE SODIUM 100 MG CAPSULE (FP) PO SCH (10:00)
[2021-12-14] MEDS ORDERED: ENOXAPARIN NA (PORCINE) 40 MG/0.4 ML DISP.SYRIN SQ SCH (10:00)
[2021-12-14] MEDS ORDERED: methaDONE HCL 40 MG DISPERSABLE TABLET ONE (10:48)
[2021-12-14] MEDS ORDERED: methaDONE HCL 10 MG TABLET ONE (10:48)
[2021-12-14 15:31] VITALS: BP 135/90; PULSE 79; TEMP 99
[2021-12-15] MEDS ORDERED: diazePAM 5 MG TABLET PO SCH (06:00)
[2021-12-16] MEDS ORDERED: diazePAM 5 MG TABLET PO ONE (06:00)
== END 2021-12-14 17:18 | disposition home or self-care (01) ==
LOC: JER 18:07 → JERBED 20:34 → J4W 12-14 05:08
PROVIDERS: ADMIT Internal Medicine; ATTEND Internal Medicine
PROC: 3E0F7GC Introduction of Other Therapeutic Substance into Respiratory Tract, Via Natural or Artificial Opening (ICD-10-PCS; principal; 2021-12-13)
PROC: 3E03329 Introduction of Other Anti-infective into Peripheral Vein, Percutaneous Approach (ICD-10-PCS; 2021-12-13)
PROC: 3E023GC Introduction of Other Therapeutic Substance into Muscle, Percutaneous Approach (ICD-10-PCS; 2021-12-13)
PROC: 3E033GC Introduction of Other Therapeutic Substance into Peripheral Vein, Percutaneous Approach (ICD-10-PCS; 2021-12-13)
PROC: 3E033NZ Introduction of Analgesics, Hypnotics, Sedatives into Peripheral Vein, Percutaneous Approach (ICD-10-PCS; 2021-12-13)
DX: J96.02 Acute respiratory failure with hypercapnia (principal); J96.01 Acute respiratory failure with hypoxia; J69.0 Pneumonitis due to inhalation of food and vomit; I10 Essential (primary) hypertension; Z68.36 Body mass index [BMI] 36.0-36.9, adult; M54.16 Radiculopathy, lumbar region; E78.5 Hyperlipidemia, unspecified; F10.10 Alcohol abuse, uncomplicated; E66.9 Obesity, unspecified; F11.10 Opioid abuse, uncomplicated; Z29.8 Encounter for other specified prophylactic measures; F17.210 Nicotine dependence, cigarettes, uncomplicated
CPT/HCPCS: 36415; 71045-TC-FY; 80048; 80053; 82803; 82962; 83735; 84100; 84484; 85025; 85379; 85610; 85730; 87804; 93005; 93010; 94640; 96365; 96367; 96372; 96375; 99285-25; C9803-CS; G0378; U0003; U0005